=== PATIENT | female | born 1995 | race African-American/Black ===

== ENCOUNTER 2022-01-29 09:36 | Emergency (ER) | payer OTHER ==
[~2022-01-29] VITALS: Ht 165.1 cm; Wt 68.9 kg
== END 2022-01-29 12:58 ==
LOC: ER 09:36
DX: S80.02XA Contusion of left knee, initial encounter (principal); W05.1XXA Fall from non-moving nonmotorized scooter, initial encounter; Y93.9 Activity, unspecified; Y92.9 Unspecified place or not applicable; Y99.9 Unspecified external cause status